=== PATIENT | female | born 1985 ===

== ENCOUNTER 2020-09-11 11:14 | Day surgery (SDC) | payer OTHER | END 2020-09-11 22:40 | disposition home or self-care (01) | LOC: CIR.AMB 11:14 → EDSEX 11:14 → CIR.AMB 11:30 | PROVIDERS: ATTEND Student in an Organized Health Care Education/Training Program | DX: N84.0 Polyp of corpus uteri (principal); Z20.822 Contact with and (suspected) exposure to COVID-19 ==